=== PATIENT | female | born 1945 | race Caucasian/White ===

== ENCOUNTER 2018-06-01 05:10 | Day surgery (SDC) | payer OTHER ==
[~2018-06-01 05:10] MED LIST: CALTRATE 600+D1 EAC1 PO; COQ-1030 MG PO; CRESTOR10 MG PO; GLYCOTROL CAPS1 EACH PO; OMEGA 3 1,0001 EACH PO; QUINAPRIL PO; VIT PO
[2018-06-01] MEDS ORDERED: MACROBID 100 M100 MG PO (09:39)
[2018-06-01] MEDS ORDERED: ULTRACET PO (09:40)
== END 2018-06-01 12:25 | disposition home or self-care (01) ==
LOC: CIR.AMB 05:10
DX: N81.3 Complete uterovaginal prolapse (principal); N39.3 Stress incontinence (female) (male)
CPT/HCPCS: 57106; 57210; 57288; C1771